=== PATIENT | female | born 1960 | race Asian ===

== ENCOUNTER 2017-06-18 00:26 | Outpatient (CLI) | payer MEDICARE, OTHER | END 2017-06-18 00:27 | disposition critical access hospital (66) | LOC: EMS 00:26 | PROVIDERS: ATTEND Surgery | DX: M54.9 Dorsalgia, unspecified (principal); R53.1 Weakness | CPT/HCPCS: A0425; A0429 ==

== ENCOUNTER 2017-06-18 00:46 | Emergency (ER) | payer MEDICARE, OTHER ==
--- NOTE | 2017-06-18 03:29 | ED Physician Documentation ---
PD HPI BACK PAIN - Stated complaint Stated Complaint: NUMBNESS - Chief complaint Chief Complaint: Back Pain - History obtained from History obtained from: Patient - History of Present Illness Timing - onset: How many weeks ago (1) Timing - details: Gradual onset Pain level now: 10 Location: Left Quality: Pain, Similar to prior episodes Associated symptoms: No: Fever, Weakness, Numbness, Incontinent of urine, Unable to urinate, Hematuria, Incontinent of stool Improves with: Rest Worsened by: Movement Similar symptoms before: Other (similar to symptoms she experienced before spinal surgery (nearly a decade ago)) Recently seen: Not recently seen - Additional information Additional information: c/o neck pain that radiates down her back and into both legs, down to feet. The pain is predominately on the left but it is bilateral. Review of Systems Constitutional: reports: Reviewed and negative Cardiac: reports: Reviewed and negative Respiratory: reports: Reviewed and negative GI: reports: Reviewed and negative : denies: Dysuria, Frequency, Incontinent Musculoskeletal: reports: Back pain Neurologic: reports: Numbness (paresthesias in toes of both feet). denies: Generalized weakness, Focal weakness, Headache PD PAST MEDICAL HISTORY - Past Medical History Past Medical History: Yes Cardiovascular: None Respiratory: Shortness of breath Neuro: None Endocrine/Autoimmune: None, Other GI: None : None HEENT: None Psych: Other Musculoskeletal: Chronic back pain Derm: None - Past Surgical History Past Surgical History: Yes Ortho: Spine surgery, Other HEENT: Tonsil/Adenoidectomy - Present Medications Home Medications: Ambulatory Orders Medication Instructions Recorded Confirmed diphenhydrAMINE [Benadryl] 25 mg PO QPM PRN 05/10/16 06/18/17 Hydrocodone/Acetaminophen 1 - 2 each PO Q6HR PRN #20 tablet 06/18/17 [Hydrocodone-Acetamin 5-325 mg] LORazepam [Ativan] 0.5 - 1 mg PO Q6H PRN #20 tablet 06/18/17 predniSONE [Prednisone] 40 mg PO DAILY 3 Days #6 tablet 06/18/17 - Allergies Allergies/Adverse Reactions: Allergies Allergy/AdvReac Type Severity Reaction Status Date / Time hydromorphone HCl * Allergy Unknown Verified 06/18/17 00:52 [From Dilaudid] morphine Allergy Unknown Verified 06/18/17 00:52 olanzapine [From Zyprexa] Allergy Anaphylaxis Verified 06/18/17 00:52 - Social History Does the pt smoke?: No Smoking Status: Never smoker Does the pt drink ETOH?: No Does the pt have substance abuse?: No - Immunizations Immunizations: TDAP >10years/unknown, Other immun not current - POLST Patient has POLST: No PD ED PE NORMAL - Vitals Vital signs reviewed: Yes - General General: Alert and oriented X 3, Well developed/nourished, Other (andious and tearful at times) - Neck Neck: Supple, no meningeal sign, No bony TTP - Cardiac Cardiac: RRR, No murmur - Respiratory Respiratory: No respiratory distress, Clear bilaterally - Back Back: No spinal TTP - Derm Derm: Normal color, Warm and dry, No rash - Extremities Extremities: No edema - Neuro Neuro: Alert and oriented X 3, tipple repairer 2-12 intact, No motor deficit, No sensory deficit, Normal speech, Other (5/5 strength bilateral dorsi/plantarflexion, bilateral ict business analyst. 2+/4 bilateral patellar and bicep reflexes) Eye Opening: Spontaneous Motor: Obeys Commands Verbal: Oriented GCS Score: 15 Results - Vitals Vitals: Vital Signs - 24 hr 06/18/17 06/18/17 06/18/17 00:47 03:53 06:52 Temperature 36.3 C L 36.6 C Heart Rate 67 71 67 Respiratory 18 18 18 Rate Blood Pressure 166/86 H 137/86 H 140/88 H O2 Saturation 99 99 99 06/18/17 09:46 Temperature Heart Rate 80 Respiratory 16 Rate Blood Pressure 138/79 H O2 Saturation 98 Oxygen O2 Source Room air PD MEDICAL DECISION MAKING - ED course Complexity details: reviewed old records, reviewed results, re-evaluated patient , considered differential, d/w patient ED course: patient appeared comfortable, NAD after vicodin, prednisone, and ativan. she reported significant improvement. Departure - Departure Disposition: 01 Home, Self Care Clinical Impression: Sciatica Condition: Good Instructions: ED Sciatica Follow-Up: Alberto Guzman MD [Primary Care Provider] - (Call to arrange for next available appointment) Prescriptions: Hydrocodone/Acetaminophen [Hydrocodone-Acetamin 5-325 mg] 1 - 2 each PO Q6HR PRN #20 tablet PRN Reason: Pain LORazepam [Ativan] 0.5 - 1 mg PO Q6H PRN #20 tablet PRN Reason: Spasms predniSONE [Prednisone] 40 mg PO DAILY 3 Days #6 tablet Discharge Date/Time: 06/18/17 09:56
[2017-06-18] MEDS ORDERED: predniSONE 20 MG TABLET PO STA (03:45)
[2017-06-18] MEDS ORDERED: HYDROcod/ACETAM 5/325 MG TABLET PO STA ×2 (03:45→08:13)
[2017-06-18] MEDS ORDERED: LORazepam 0.5 MG TABLET PO STA (03:45)
[2017-06-18 09:47] VITALS: BP 138/79
== END 2017-06-18 09:56 | disposition home or self-care (01) ==
LOC: EDUNIT# → ED 00:46 → SUPCPDRO 00:46 → ED 09:56
DX: M54.32 Sciatica, left side (principal); M54.31 Sciatica, right side
CPT/HCPCS: 99283; A9270; J7512

== ENCOUNTER 2017-09-12 17:08 | Outpatient (CLI) | payer MEDICARE, OTHER | END 2017-09-12 17:09 | disposition critical access hospital (66) | LOC: EMS 17:08 | PROVIDERS: ATTEND Surgery | DX: R44.3 Hallucinations, unspecified (principal) | CPT/HCPCS: A0425; A0429 ==

== ENCOUNTER 2017-09-12 17:27 | Emergency (ER) | payer MEDICARE, OTHER ==
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
== END 2017-09-12 17:34 | disposition left against medical advice (07) ==
LOC: EDUNIT# → ED 17:27
DX: F15.10 Other stimulant abuse, uncomplicated (principal); R44.1 Visual hallucinations; Y09 Assault by unspecified means; Z53.29 Procedure and treatment not carried out because of patient's decision for other reasons
CPT/HCPCS: 99282

== ENCOUNTER 2017-09-12 21:41 | Emergency (ER) | payer MEDICARE, OTHER ==
--- NOTE | 2017-09-12 22:56 | ED Physician Documentation ---
PD HPI HEAD INJURY - Stated complaint Stated Complaint: BUMP ON HEAD - Chief complaint Chief Complaint: Trauma Hd/Nk - History obtained from History obtained from: Patient - History of Present Illness Mechanism of head injury: Fell Where head injury occurred: Home Timing - onset: Today (this morning) Pain level now: 7 Location of injury: Left, Front Quality of pain: Pain Associated symptoms: LOC. No: AMS, Amnesia, Nausea / vomiting, Neck pain Symptoms improve with: Rest Symptoms worsen with: Palpation Contributing factors: No: Anticoagulated, Intoxicated Recently seen: Emergency Dept (left this ED earlier today prior to evaluation) - Additional information Additional information: patient says she was walking in her house this morning, became lightheaded and felt like she was going to pass out. She then awoke on floor, apparently having hit her head on the wall; forehead pain, swelling. She says she has not had similar previous episodes. Review of Systems Eyes: reports: Reviewed and negative Cardiac: reports: Reviewed and negative Respiratory: reports: Reviewed and negative GI: reports: Reviewed and negative Musculoskeletal: denies: Neck pain, Back pain Neurologic: reports: Syncope, Headache, Head injury, LOC. denies: Generalized weakness, Focal weakness, Numbness PD PAST MEDICAL HISTORY - Past Medical History Past Medical History: Yes Cardiovascular: None Respiratory: Shortness of breath Neuro: None Endocrine/Autoimmune: None, Other GI: None : None HEENT: None Psych: Other Musculoskeletal: Chronic back pain Derm: None - Past Surgical History Past Surgical History: Yes Ortho: Spine surgery, Other HEENT: Tonsil/Adenoidectomy - Present Medications Home Medications: Ambulatory Orders Medication Instructions Recorded Confirmed diphenhydrAMINE [Benadryl] 25 mg PO QPM PRN 05/10/06/18/17 Hydrocodone/Acetaminophen 1 - 2 each PO Q6HR PRN #20 tablet 06/18/17 [Hydrocodone-Acetamin 5-325 mg] LORazepam [Ativan] 0.5 - 1 mg PO Q6H PRN #20 tablet 06/18/17 predniSONE [Prednisone] 40 mg PO DAILY 3 Days #6 tablet 06/18/17 - Allergies Allergies/Adverse Reactions: Allergies Allergy/AdvReac Type Severity Reaction Status Date / Time hydromorphone HCl * Allergy Unknown Verified 09/12/17 21:50 [From Dilaudid] morphine Allergy Unknown Verified 09/12/17 21:50 olanzapine [From Zyprexa] Allergy Anaphylaxis Verified 09/12/17 21:50 - Social History Does the pt smoke?: No Smoking Status: Never smoker Does the pt drink ETOH?: No Does the pt have substance abuse?: No - Immunizations Immunizations are current?: No Immunizations: TDAP >10years/unknown, Other immun not current - POLST Patient has POLST: No PD ED PE NORMAL - Vitals Vital signs reviewed: Yes - General General: Alert and oriented X 3, No acute distress, Well developed/nourished - HEENT HEENT: PERRL, EOMI, Moist mucous membranes - Neck Neck: No bony TTP - Cardiac Cardiac: RRR, No murmur, No gallop, No rub - Respiratory Respiratory: No respiratory distress, Clear bilaterally - Abdomen Abdomen: Soft, Non tender - Extremities Extremities: No tenderness to palpate, Normal ROM s pain - Neuro Neuro: Alert and oriented X 3, road manager 2-12 intact, No motor deficit, No sensory deficit, Normal speech Eye Opening: Spontaneous Motor: Obeys Commands Verbal: Oriented GCS Score: 15 PD ED PE EXPANDED - HEENT HEENT: Other (dried blood in hair (patient says this was from her nose, although on exam, there is no epistaxis or dried blood in either nare)). No: Right nares epsitaxis, Left nares epistaxis HEENT Visual: 1 - bruising, swelling, tenderness Results - Vitals Vitals: Vital Signs - 24 hr 09/12/17 09/13/17 09/13/17 21:48 00:05 02:32 Temperature 36.0 C L 36.5 C Heart Rate 88 68 69 Respiratory 18 14 16 Rate Blood Pressure 139/63 H 130/72 128/70 O2 Saturation 99 99 100 Oxygen O2 Source Room air - EKG (time done) No standard instances Rate: Rate (enter#) (63) Rhythm: NSR [place]: Normal Intervals: Normal [place] QRS: Normal Ischemia: Normal ST segments, Q waves (V1-V3) Compare to prior EKG: Unchanged from prior EKG (8/13/16) - Labs Labs: Laboratory Tests 09/12/17 09/12/17 09/12/17 23:34 23:34 23:34 WBC 7.6 RBC 4.20 Hgb 12.3 Hct 37.0 MCV 88.1 MCH 29.2 MCHC 33.2 RDW 13.5 Plt Count 270 MPV 8.4 Neut # 4.8 Lymph # 2.1 [place] # 0.5 Eos # 0.1 Baso # 0.1 Absolute Nucleated RBC 0.00 Nucleated RBC % 0.0 Sodium 135 Potassium 3.2 L Chloride 103 Carbon Dioxide 24 Anion Gap 8.0 BUN 27 H Creatinine 0.9 Estimated GFR (MDRD) 64 L Glucose 250 H Calcium 8.5 Troponin I < 0.04 - Rads (name of study) CT head Radiology: Prelim report reviewed, See rad report PD MEDICAL DECISION MAKING - ED course Complexity details: reviewed results, re-evaluated patient, considered differential, d/w patient Departure - Departure Disposition: 01 Home, Self Care Clinical Impression: Hyperglycemia Syncope Qualifiers: Syncope type: unspecified Qualified Code(s): R55 - Syncope and collapse Contusion of head Qualifiers: Encounter type: initial encounter Contusion of head detail: scalp Qualified Code(s): S00.03XA - Contusion of scalp, initial encounter Condition: Good Instructions: ED Head Injury Closed, ED Fainting Unkn Cause, ED Hyperglycemia New Susp Diabetes Follow-Up: [facility] [Provider Group] [facility] [Provider Group] Comments: There is no evidence of serious injury on the CT scan of your head tonight. You can take ibuprofen as directed by the label as needed for the headache (this is an [id number] medication). Your blood sugar was quite high tonight (250); although this is abnormally high , it does not require treatment at this time. It is very important that you follow-up with your doctor within the next week for reevaluation of this test. Discharge Date/Time: 09/13/17 02:35
[2017-09-12 23:39] LABS: BASOPHILS # (AUTO) 0.1 10^3/uL (0.0-0.1); BASOPHILS % (AUTO) 1.1 %; EOSINOPHILS # (AUTO) 0.1 10^3/uL (0.0-0.7); EOSINOPHILS % (AUTO) 1.5 %; HGB - HEMOGLOBIN 12.3 g/dL (12.0-16.0); LYMPHOCYTES # (AUTO) 2.1 10^3/uL (1.5-3.5); LYMPHOCYTES % (AUTO) 27.1 %; MEAN CORPUSCULAR HEMOGLOBIN 29.2 pg (27.0-31.0); MEAN CORPUSCULAR HGB CONC 33.2 g/dL (32.0-36.0); MEAN CORPUSCULAR VOLUME 88.1 fL (81.0-99.0); MEAN PLATELET VOLUME 8.4 fL (7.9-10.8); MONOCYTES # (AUTO) 0.5 10^3/uL (0.0-1.0); MONOCYTES % (AUTO) 7.1 %; NEUTROPHILS # (AUTO) 4.8 10^3/uL (1.5-6.6); NEUTROPHILS % (AUTO) 63.2 %; PLT - PLATELET COUNT 270 10^3/uL (130-450); RED CELL DISTRIBUTION WIDTH 13.5 % (12.0-15.0); WHITE BLOOD COUNT 7.6 x10^3/uL (4.8-10.8)
[2017-09-12 23:44] LABS: CALCIUM 8.5 mg/dL (8.5-10.3); CREATININE 0.9 mg/dL (0.4-1.0)
--- NOTE | 2017-09-13 00:27 | CT Preliminary Report ---
Exam: CT HEAD W/O IMPRESSION: Negative CT head without contrast. [facility] SITE ID: [id number]
--- NOTE | 2017-09-13 00:28 | CT Report ---
EXAM: CT HEAD EXAM DATE: 09/13/2017 12:05 AM. CLINICAL HISTORY: Syncope, head injury, GALVAN. COMPARISON: None. TECHNIQUE: Multiaxial CT images were obtained from the foramen magnum to the vertex. Reformats: Coron al. IV contrast: None. In accordance with CT protocol optimization, one or more of the following dose reduction techniques w ere utilized for this exam: automated exposure control, adjustment of mA and/or KV based on patient s ize, or use of iterative reconstructive technique. FINDINGS: Parenchyma: No intraparenchymal hemorrhage. No evidence of mass, midline shift, or CT findings of inf arction. Garcia-white differentiation is distinct. Extraaxial Spaces: Normal for age. No subdural or epidural collections identified. Ventricles: Normal in size and position. Sinuses and Orbits: Imaged paranasal sinuses, orbits, and mastoids show no significant abnormality. Bones: No evidence of fracture or calvarial defect. Other: None. IMPRESSION: Negative CT head without contrast. [facility] Referring Provider Line: [phone] SITE ID: [id number]
[2017-09-13] MEDS ORDERED: IBUPROFEN 600 MG TABLET PO STA (02:03)
[2017-09-13] MEDS ORDERED: IBUPROFEN 400 MG TABLET PO ONE (02:24)
[2017-09-13 02:36] VITALS: BP 128/70
== END 2017-09-13 02:35 | disposition home or self-care (01) ==
LOC: ED 21:41
DX: S00.03XA Contusion of scalp, initial encounter (principal); W18.39XA Other fall on same level, initial encounter; Y93.01 Activity, walking, marching and hiking; Y92.009 Unspecified place in unspecified non-institutional (private) residence as the place of occurrence of the external cause; R55 Syncope and collapse; R73.9 Hyperglycemia, unspecified; R44.1 Visual hallucinations; F15.10 Other stimulant abuse, uncomplicated; Y09 Assault by unspecified means
CPT/HCPCS: 70450; 80048; 84484; 85025; 93005; 99282; 99283; 99284; A9270; 36415

== ENCOUNTER 2017-11-19 20:07 | Emergency (ER) | payer MEDICARE, OTHER ==
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
[2017-11-19 22:45] VITALS: BP 123/74
== END 2017-11-19 20:31 | disposition left against medical advice (07) ==
LOC: ED 20:07
DX: R45.1 Restlessness and agitation (principal)
CPT/HCPCS: 99283

== ENCOUNTER 2023-01-07 07:14 | Outpatient (CLI) | payer MEDICARE, OTHER | END 2023-01-07 07:15 | disposition critical access hospital (66) | LOC: EMS 07:14 | DX: Z04.6 Encounter for general psychiatric examination, requested by authority (principal) | CPT/HCPCS: A0425; A0429 ==

== ENCOUNTER 2023-01-07 07:34 | Emergency (ER) | payer MEDICARE, OTHER ==
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
[2023-01-07 08:06] LABS: BASOPHILS # (AUTO) 0.1 10^3/uL (0.0-0.1); BASOPHILS % (AUTO) 0.8 %; EOSINOPHILS # (AUTO) 0.2 10^3/uL (0.0-0.7); EOSINOPHILS % (AUTO) 2.5 %; HCT - HEMATOCRIT 40.5 % (37.0-47.0); HGB - HEMOGLOBIN 12.9 g/dL (12.0-16.0); LYMPHOCYTES # (AUTO) 1.7 10^3/uL (1.5-3.5); LYMPHOCYTES % (AUTO) 25.7 %; MEAN CORPUSCULAR HEMOGLOBIN 28.2 pg (27.0-31.0); MEAN CORPUSCULAR HGB CONC 31.9 g/dL (32.0-36.0); MEAN CORPUSCULAR VOLUME 88.4 fL (81.0-99.0); MEAN PLATELET VOLUME 10.1 fL (7.9-10.8); MONOCYTES # (AUTO) 0.4 10^3/uL (0.0-1.0); MONOCYTES % (AUTO) 6.2 %; NEUTROPHILS # (AUTO) 4.2 10^3/uL (1.5-6.6); NEUTROPHILS % (AUTO) 64.6 %; PLT - PLATELET COUNT 292 10^3/uL (130-450); RED BLOOD COUNT 4.58 10^6/uL (4.20-5.40); RED CELL DISTRIBUTION WIDTH 12.7 % (12.0-15.0); WHITE BLOOD COUNT 6.5 x10^3/uL (4.8-10.8)
[2023-01-07 08:22] LABS: ALBUMIN 4.5 g/dL (3.2-5.5); ALBUMIN/GLOBULIN RATIO 1.8 (1.0-2.2); ALKALINE PHOSPHATASE 73 IU/L (42-121); ALT ALANINE AMINOTRANSFERASE 35 IU/L (10-60); AST ASPARTATE AMINOTRANSFERASE 34 IU/L (10-42); BILIRUBIN,TOTAL 0.8 mg/dL (0.2-1.0); BUN - BLOOD UREA NITROGEN 15 mg/dL (6-20); CALCIUM 8.7 mg/dL (8.5-10.3); CARBON DIOXIDE - CO2 27 mmol/L (21-32); CHLORIDE 106 mmol/L (101-111); CK- CREATINE KINASE 653 IU/L (22-269); CREATININE 0.7 mg/dL (0.4-1.0); GFR - MDRD 85 (>89); GLUCOSE 260 mg/dL (70-100); LIPASE 43 U/L (22-51); MAGNESIUM 2.2 mg/dL (1.7-2.8); POTASSIUM 3.1 mmol/L (3.5-5.0); SODIUM 140 mmol/L (135-145)
[2023-01-07 08:25] LABS: MUDS CUTOFF CONCENTRATIONS CUTOFF CONC BELOW:
[2023-01-07 08:28] LABS: BILIRUBIN,URINE NEGATIVE (NEGATIVE); GLUCOSE, URINE (UA) >=1000 mg/dL (NEGATIVE); KETONES,URINE (UA) TRACE mg/dL (NEGATIVE); LEUKOCYTE ESTERASE, URINE NEGATIVE (NEGATIVE); NITRITE,URINE NEGATIVE (NEGATIVE); OCCULT BLOOD,URINE NEGATIVE (NEGATIVE); PROTEIN,URINE TRACE mg/dL (NEGATIVE); UROBILINOGEN,URINE 0.2 (NORMAL) E.U./dL (NORMAL)
[2023-01-07 08:29] LABS: CLARITY,URINE CLEAR (CLEAR)
[2023-01-07 08:35] LABS: THYROID STIMULATING HORMONE 1.85 uIU/mL (0.34-5.60)
[2023-01-07 08:37] LABS: AMPHETAMINE SCREEN,URINE POSITIVE (NEGATIVE); BARBITURATE SCREEN,UR NEGATIVE (NEGATIVE); BENZODIAZEPINES SCREEN, URINE NEGATIVE (NEGATIVE); COCAINE SCREEN URINE NEGATIVE (NEGATIVE); METHADONE SCREEN, URINE NEGATIVE (NEGATIVE); METHAMPHETAMINES SCREEN, URINE POSITIVE (NEGATIVE); OPIATE SCREEN, URINE NEGATIVE (NEGATIVE); OXYCODONE SCREEN, URINE NEGATIVE (NEGATIVE); PROPOXYPHENE SCREEN, URINE NEGATIVE (NEGATIVE); THC CANNABINOID SCREEN, URINE NEGATIVE (NEGATIVE); TRICYCLIC ANTIDEPRESSANT,URINE NEGATIVE (NEGATIVE)
[2023-01-07 08:45] LABS: ACETAMINOPHEN 0.1 ug/mL; ETOH - ETHANOL < 10.0 mg/dL
[2023-01-07] MEDS ORDERED: POTASSIUM CHLORIDE 20 MEQ TABLET PO STA (08:46)
[2023-01-07 08:51] LABS: SALICYLATE < 1.5 mg/dL
[2023-01-07] MEDS ORDERED: LORazepam 1 MG TABLET PO STA (14:27)
[2023-01-07 16:00] VITALS: O2SAT 99
[2023-01-07 21:43] VITALS: BP 174/96
== END 2023-01-07 21:44 ==
LOC: EDUNIT# → ED 07:34
DX: F23 Brief psychotic disorder (principal); E87.6 Hypokalemia; R73.9 Hyperglycemia, unspecified; Z20.822 Contact with and (suspected) exposure to COVID-19
CPT/HCPCS: 36415; 80053; 80306; 80307; 81003; 82550; 83690; 83735; 84443; 85025; 87635; 99284; 99285; A9270; G0480; J8499; 80320; 80329; 81001; 87086